=== PATIENT | male | born 1980 | race Two or more races ===

== ENCOUNTER 2024-06-19 22:21 | Inpatient (IN) | payer MEDICAID, OTHER ==
[~2024-06-19] VITALS: Ht 193 cm; Wt 89.8 kg
[2024-06-19 23:07] LABS: BASOPHILS # (AUTO) 0.1 K/uL (0.0-0.2); BASOPHILS % (AUTO) 0.4 % (0.0-2.0); EOSINOPHILS # (AUTO) 0.2 K/uL (0.0-0.7); EOSINOPHILS % (AUTO) 1.2 % (0.0-6.0); HEMATOCRIT 34 % (39-51); HEMOGLOBIN 11.4 g/dL (13.5-17.5); LYMPHOCYTES % (AUTO) 10.8 % (20.0-44.0); MEAN CORPUSCULAR HEMOGLOBIN 29 PG (26.0-33.0); MEAN CORPUSCULAR HGB CONC 33 g/dl (31.0-36.0); MEAN CORPUSCULAR VOLUME 89 fL (80-96); MONOCYTES # (AUTO) 0.8 K/uL (0.1-1.30); MONOCYTES % (AUTO) 4.5 % (2.0-12.0); NEUTROPHILS # (AUTO) 15.5 K/uL (1.8-8.9); NEUTROPHILS % (AUTO) 83.1 % (43.0-81.0); PLATELET COUNT (AUTO) 211 K/uL (150-450); RED BLOOD CELL COUNT(AUTO) 3.87 MIL/uL (4.5-6.0); RED CELL DISTRIBUTION WIDTH 13.4 % (11.5-15.0); WHITE BLOOD COUNT (AUTO) 18.6 K/uL (4.3-11.0)
[2024-06-19 23:15] LABS: CALCIUM, SERUM 9.1 mg/dL (8.5-10.1); CARBON DIOXIDE 30 mmol/L (21-32); CHLORIDE 105 mmol/L (98-107); GLUCOSE 115 mg/dL (74-106); POTASSIUM 3.7 mmol/L (3.5-5.1); SODIUM SERUM 141 mmol/L (136-145); UREA NITROGEN, BLOOD 19 mg/dL (7-18)
[2024-06-19] MEDS ORDERED: ACETAMINOPHEN ES 500 MG TABLET ONE (23:20)
[2024-06-19 23:21] LABS: ALANINE AMINOTRANSFERASE 32 U/L (12-78); ALBUMIN 3.3 g/dL (3.4-5.0); ALKALINE PHOSPHATASE 71 U/L (46-116); ASPARTATE AMINOTRANSFERASE 20 U/L (15-37); BILIRUBIN,DIRECT 0.2 mg/dL (0.0-0.2); BILIRUBIN,TOTAL 0.6 mg/dL (0.2-1.0); TOTAL PROTEIN, SERUM 8.1 g/dL (6.4-8.2)
[2024-06-19 23:26] LABS: LACTIC ACID 1.5 mmol/L (0.4-2.0)
[2024-06-19] MEDS: IV NS 0.9% 1,000 ML BAG IV ONE (23:30)
[2024-06-19 23:31] LABS: INR 1.08 (0.91-1.10); PARTIAL THROMBOPLASTIN TIME 31.5 SEC (24.3-34.3); PROTHROMBIN TIME 11.4 SECS (9.2-11.1)
[2024-06-19] MEDS: ACETAMINOPHEN ES 500 MG TABLET GT ONE (23:40)
[2024-06-20] VITALS (10 sets, daily range): BP systolic 92–109; BP diastolic 66–77; TEMP 97.5–98.1; O2SAT 94–100
[2024-06-20] MEDS ORDERED: PIPERACI/TAZO 3.375GM/D5W 50ML PB IV ONE ×2 (00:06→07:38)
[2024-06-20] MEDS: PIPERACILLIN /TAZOBACTAM 3.375 G in IV D5W 50 ML IV ONE (00:13)
[2024-06-20 01:20] LABS: APPEARANCE,URINE CLOUDY (CLEAR); BILIRUBIN,URINE NEGATIVE (NEGATIVE); BLOOD, URINE NEGATIVE Ery/uL (NEGATIVE); COLOR,URINE YELLOW (YELLOW); KETONES,URINE NEGATIVE (NEGATIVE); LEUKOCYTE ESTERASE ,URINE NEGATIVE (NEGATIVE); NITRITE, URINE NEGATIVE (NEGATIVE); PH,URINE 7.5 (5.0-8.0); PROTEIN,URINE NEGATIVE (NEGATIVE); UGLUCOSE NEGATIVE (NEGATIVE)
[2024-06-20] MEDS ORDERED: diphenhydrAMINE HCL 50 MG/ML VIAL ONE (01:28)
[2024-06-20] MEDS: diphenhydrAMINE HCL 50 MG/ML VIAL IV ONE (01:31)
[2024-06-20 01:55] LABS: ADD URINE CULTURE NO; RBC,URINE 0-2 /HPF (0-2); URINE AMORPHOUS URATE Moderate /HPF (None Seen)
[2024-06-20 01:56] LABS: BACTERIA,URINE 1+ /HPF (None Seen); WBC,URINE 0-2 /HPF (0-3)
[2024-06-20] MEDS ORDERED: ONDANSETRON HCL/PF 4 MG/2 ML VIAL IVP PRN (02:30)
[2024-06-20] MEDS ORDERED: Z GUARD REMEDY 4 OZ OINT TP PRN (02:30)
[2024-06-20] MEDS ORDERED: ACETAMINOPHEN 325 MG TABLET MC PRN (02:30)
[2024-06-20] MEDS ORDERED: PIPERACILLIN /TAZOBACTAM 3.375 G in IV D5W 50 ML IV SCH (05:00)
[2024-06-20 06:41] LABS: BASOPHILS % (AUTO) 0.2 % (0.0-2.0); EOSINOPHILS # (AUTO) 0.5 K/uL (0.0-0.7); EOSINOPHILS % (AUTO) 3.1 % (0.0-6.0); HEMATOCRIT 30 % (39-51); HEMOGLOBIN 10.2 g/dL (13.5-17.5); LYMPHOCYTES # (AUTO) 2.7 K/uL (0.8-4.8); LYMPHOCYTES % (AUTO) 16.8 % (20.0-44.0); MEAN CORPUSCULAR HEMOGLOBIN 30 PG (26.0-33.0); MEAN CORPUSCULAR HGB CONC 34 g/dl (31.0-36.0); MEAN CORPUSCULAR VOLUME 89 fL (80-96); MONOCYTES # (AUTO) 0.8 K/uL (0.1-1.30); MONOCYTES % (AUTO) 5.1 % (2.0-12.0); NEUTROPHILS # (AUTO) 12.3 K/uL (1.8-8.9); NEUTROPHILS % (AUTO) 74.8 % (43.0-81.0); PLATELET COUNT (AUTO) 183 K/uL (150-450); RED BLOOD CELL COUNT(AUTO) 3.41 MIL/uL (4.5-6.0); RED CELL DISTRIBUTION WIDTH 13.3 % (11.5-15.0); WHITE BLOOD COUNT (AUTO) 16.4 K/uL (4.3-11.0)
[2024-06-20 06:51] LABS: CALCIUM, SERUM 8.3 mg/dL (8.5-10.1); CREATININE 0.9 mg/dL (0.6-1.3); PHOSPHORUS 2.5 mg/dL (2.5-4.9)
[2024-06-20] MEDS: ZOSYN IVPB 3.375 G in IV D5W 50ml IV SCH (07:50)
[2024-06-20] MEDS ORDERED: QUET100T GT (07:52)
[2024-06-20] MEDS ORDERED: APIX2.5T GT (07:52)
[2024-06-20] MEDS ORDERED: IPRA3AMP22 IH ×2 (07:52)
[2024-06-20] MEDS ORDERED: CHOL100062 GT (07:52)
[2024-06-20] MEDS ORDERED: ACET-2030 GT (07:52)
[2024-06-20] MEDS ORDERED: LACT10SO58 GT (07:52)
[2024-06-20] MEDS ORDERED: ACET-868 GT (07:52)
[2024-06-20] MEDS ORDERED: LEVE100S GT (07:52)
[2024-06-20] MEDS ORDERED: TRAZ-257 GT (07:52)
[2024-06-20] MEDS ORDERED: BISA10SU11 RC (07:52)
[2024-06-20] MEDS ORDERED: VALP250S4 GT (07:52)
[2024-06-20] MEDS ORDERED: CHLO118L3 MM (07:52)
[2024-06-20] MEDS ORDERED: FENO48TA GT (07:52)
[2024-06-20] MEDS ORDERED: RISP2TAB5 GT (07:52)
[2024-06-20] MEDS ORDERED: NA P133E RC (07:52)
[2024-06-20] MEDS ORDERED: QUET200T GT (07:52)
[2024-06-20] MEDS ORDERED: GLYC2TAB21 GT (07:52)
[2024-06-20] MEDS ORDERED: BENZ1TAB7 GT (07:52)
[2024-06-20] MEDS ORDERED: OXYC5TAB3 GT (07:52)
[2024-06-20] MEDS ORDERED: L. A1TAB10 GT (07:52)
[2024-06-20] MEDS ORDERED: LACT100027 GT (07:52)
[2024-06-20] MEDS ORDERED: MULT-447 GT (07:52)
[2024-06-20] MEDS ORDERED: DICL100G26 TP (07:52)
[2024-06-20] MEDS ORDERED: ONDA-97 GT (07:52)
[2024-06-20] MEDS ORDERED: MIDO5TAB4 GT (07:52)
[2024-06-20] MEDS ORDERED: SCOP1PAT11 TD (07:52)
[2024-06-20] MEDS ORDERED: FAMO20TA8 GT (07:52)
[2024-06-20] MEDS: PANTOPRAZOLE 40 MG VIAL IV SCH (11:41)
[2024-06-20] MEDS ORDERED: LACTULOSE 10 G/15 ML UDC (PYXIS) GT PRN (13:00)
[2024-06-20] MEDS ORDERED: SCOPOLAMINE PATCH 1 MG/72HR TD SCH (13:00)
[2024-06-20] MEDS ORDERED: BISACODYL SUPP (10 MG) 10 MG/SUPP.RECT SUPP.RECT RC PRN (13:00)
[2024-06-20] MEDS ORDERED: oxyCODONE IR immediate release 5 MG TABLET GT PRN (13:30)
[2024-06-20] MEDS: VALPROIC ACID 250 MG/5 ML UDC GT SCH (13:49)
[2024-06-20] MEDS: VANCOMYCIN 750 MG in IV D5W 250 ML IV SCH (13:52)
[2024-06-20] MEDS: CEFEPIME 2 GM in IV D5W 100 ML IV SCH (13:52)
[2024-06-20] MEDS: SCOPOLAMINE PATCH 1 MG/72HR TD SCH (14:43)
[2024-06-20] MEDS: LEVETIRACETAM SOL (5 ML) 100 MG/ML UDC GT SCH (17:24)
[2024-06-20] MEDS: BENZTROPINE MESYLATE (1 MG) 1 MG TABLET GT SCH (17:24)
[2024-06-20] MEDS: APIXABAN 2.5 MG TABLET GT SCH (17:25)
[2024-06-20] MEDS: FAMOTIDINE (20 MG) 20 MG TABLET GT SCH (17:25)
[2024-06-20] MEDS: risperiDONE 1 MG TABLET GT SCH (17:25)
[2024-06-20] MEDS: MIDODRINE HCL (5MG) 5 MG TABLET GT SCH (17:29)
[2024-06-20] MEDS: TRAZODONE 50 MG TABLET GT SCH (21:19)
[2024-06-20] MEDS: QUETIAPINE FUMARATE 100 MG TABLET GT SCH (21:19)
[2024-06-20] MEDS: VANCOMYCIN HCL 1.25 GM in IV D5W 250 ML IV SCH (21:20)
[2024-06-20] MEDS: CHLORHEXIDINE GLUCONATE 4% 118 ML BOTTLE TP SCH (21:21)
[2024-06-20] MEDS: JEVITY 1.2 CAL 1,000 ML BOTTLE JT PRN (21:38)
[2024-06-21] VITALS (12 sets, daily range): BP systolic 104–118; BP diastolic 69–77; TEMP 97.5–98.5; O2SAT 94–99
[2024-06-21] MEDS: Fenofibrate 48 MG TABLET GT SCH (08:24)
[2024-06-21] MEDS: CHOLECALCIFEROL 1,000 UNIT TABLET (VIT D3) GT SCH (08:24)
[2024-06-21] MEDS: QUETIAPINE FUMARATE 100 MG TABLET GT SCH (08:25)
[2024-06-21] MEDS: ACIDOPHILUS/BULGARICUS 1 EACH TAB.CHEW GT SCH (08:25)
[2024-06-21] MEDS: MULTIVIT W/MINERALS 1 TAB TABLET GT SCH (08:25)
[2024-06-21] MEDS: PROSOURCE / PROSTAT (PYXIS) 30 ML UDC GT SCH (08:26)
[2024-06-21 08:45] LABS: CALCIUM, SERUM 9.1 mg/dL (8.5-10.1); CREATININE 0.9 mg/dL (0.6-1.3); POTASSIUM 3.8 mmol/L (3.5-5.1)
[2024-06-21 08:59] LABS: BASOPHILS % (AUTO) 0.4 % (0.0-2.0); EOSINOPHILS # (AUTO) 0.4 K/uL (0.0-0.7); EOSINOPHILS % (AUTO) 7.5 % (0.0-6.0); HEMATOCRIT 33 % (39-51); HEMOGLOBIN 11.2 g/dL (13.5-17.5); LYMPHOCYTES # (AUTO) 1.3 K/uL (0.8-4.8); MEAN CORPUSCULAR HEMOGLOBIN 30 PG (26.0-33.0); MEAN CORPUSCULAR HGB CONC 34 g/dl (31.0-36.0); MEAN CORPUSCULAR VOLUME 89 fL (80-96); MONOCYTES # (AUTO) 0.5 K/uL (0.1-1.30); MONOCYTES % (AUTO) 9.4 % (2.0-12.0); NEUTROPHILS # (AUTO) 3.4 K/uL (1.8-8.9); NEUTROPHILS % (AUTO) 59.7 % (43.0-81.0); PLATELET COUNT (AUTO) 204 K/uL (150-450); RED BLOOD CELL COUNT(AUTO) 3.73 MIL/uL (4.5-6.0); RED CELL DISTRIBUTION WIDTH 13.5 % (11.5-15.0); WHITE BLOOD COUNT (AUTO) 5.7 K/uL (4.3-11.0)
[2024-06-21 09:41] LABS: MAGNESIUM 2.1 mg/dL (1.8-2.4)
[2024-06-21] MEDS: VANCOMYCIN 1 GM in IV D5W 250ml IV SCH (22:48)
[2024-06-21 23:07] LABS: HIV-1 p24 ANTIGEN NON REACTIVE (NONREACTIVE); HIV-1/2 ANTIBODY NON REACTIVE (NONREACTIVE)
[2024-06-22] VITALS (13 sets, daily range): BP systolic 100–142; BP diastolic 66–78; TEMP 97.7–98.7; O2SAT 96–99
[2024-06-22 06:19] LABS: CREATININE 0.9 mg/dL (0.6-1.3); POTASSIUM 3.8 mmol/L (3.5-5.1)
[2024-06-22 06:37] LABS: BASOPHILS % (AUTO) 0.3 % (0.0-2.0); EOSINOPHILS # (AUTO) 0.4 K/uL (0.0-0.7); EOSINOPHILS % (AUTO) 8.1 % (0.0-6.0); HEMATOCRIT 33 % (39-51); HEMOGLOBIN 11.3 g/dL (13.5-17.5); LYMPHOCYTES # (AUTO) 1.7 K/uL (0.8-4.8); LYMPHOCYTES % (AUTO) 32.9 % (20.0-44.0); MEAN CORPUSCULAR HEMOGLOBIN 31 PG (26.0-33.0); MEAN CORPUSCULAR HGB CONC 34 g/dl (31.0-36.0); MEAN CORPUSCULAR VOLUME 90 fL (80-96); MONOCYTES # (AUTO) 0.4 K/uL (0.1-1.30); MONOCYTES % (AUTO) 8.3 % (2.0-12.0); NEUTROPHILS # (AUTO) 2.7 K/uL (1.8-8.9); NEUTROPHILS % (AUTO) 50.4 % (43.0-81.0); PLATELET COUNT (AUTO) 215 K/uL (150-450); RED BLOOD CELL COUNT(AUTO) 3.68 MIL/uL (4.5-6.0); RED CELL DISTRIBUTION WIDTH 13.4 % (11.5-15.0); WHITE BLOOD COUNT (AUTO) 5.3 K/uL (4.3-11.0)
[2024-06-23] VITALS (10 sets, daily range): BP systolic 97–111; BP diastolic 68–79; TEMP 97.3–98.1; O2SAT 96–100
[2024-06-23 06:47] LABS: CALCIUM, SERUM 9.2 mg/dL (8.5-10.1); CREATININE 0.9 mg/dL (0.6-1.3); POTASSIUM 3.7 mmol/L (3.5-5.1)
[2024-06-23] MEDS ORDERED: IVERMECTIN 3 MG TABLET PO ONE (14:00)
[2024-06-23] MEDS: IVERMECTIN 3 MG TABLET PO ONE (15:01)
[2024-06-23] MEDS: PERMETHRIN 5% CRM 60 GM TUBE TP ONE (15:06)
[2024-06-24] VITALS (7 sets, daily range): BP systolic 109–119; BP diastolic 73–83; TEMP 97.5–98.1; O2SAT 96–98
[2024-06-24 07:36] LABS: CALCIUM, SERUM 9.1 mg/dL (8.5-10.1); CREATININE 0.8 mg/dL (0.6-1.3); POTASSIUM 4.1 mmol/L (3.5-5.1)
[2024-06-24] MEDS ORDERED: VANC1PLA9 IV (10:26)
[2024-06-24] MEDS ORDERED: CEFE2FRO IV (10:26)
[2024-06-29] MEDS ORDERED: PERMETHRIN 5% CRM 60 GM TUBE TP ONE (14:00)
== END 2024-06-24 15:41 | DRG 720 ==
LOC: ER 22:59 → TELE1 06-20 06:48
PROVIDERS: ADMIT Nurse Practitioner Family; ATTEND Internal Medicine
DX: A41.9 Sepsis, unspecified organism (principal); J96.21 Acute and chronic respiratory failure with hypoxia; J15.69 Pneumonia due to other Gram-negative bacteria; E44.1 Mild protein-calorie malnutrition; R13.10 Dysphagia, unspecified; N39.0 Urinary tract infection, site not specified; D64.9 Anemia, unspecified; E88.09 Other disorders of plasma-protein metabolism, not elsewhere classified; F32.A Depression, unspecified; Z74.01 Bed confinement status; Z86.73 Personal history of transient ischemic attack (TIA), and cerebral infarction without residual deficits; Z93.0 Tracheostomy status; Z93.1 Gastrostomy status; F41.9 Anxiety disorder, unspecified; F20.9 Schizophrenia, unspecified; Z68.24 Body mass index [BMI] 24.0-24.9, adult; Z20.822 Contact with and (suspected) exposure to COVID-19; B96.89 Other specified bacterial agents as the cause of diseases classified elsewhere
CPT/HCPCS: 31720; 36415; 71045-TC; 80048-TC; 80076-TC; 80202-TC; 81001; 82607-TC; 82728-TC; 83540-TC; 83605-TC; 83735-TC; 84100-TC; 84484-TC; 85025-TC; 85730-TC; 86803; 87040-TC; 87081-TC; 87086-TC; 87340; 87806; 94640-TC; 94760-TC; 94761-TC; 94799-TC; A4223; A4623; A6403; G0378; J0692; J1200; J1953; J2470; J2543; J3370; J3371; J7030; J7050; J7060

== ENCOUNTER 2024-07-24 08:15 | Emergency (ER) | payer MEDICAID ==
[~2024-07-24] VITALS: Ht 193 cm; Wt 98.9 kg
[~2024-07-24 08:15] MED LIST: ACET-2030 GT; ACET-868 GT; APIX2.5T GT; BENZ1TAB7 GT; BISA10SU11 RC; CEFE2FRO IV; CHLO118L3 MM; CHOL100062 GT; DICL100G26 TP; FAMO20TA8 GT; FENO48TA GT; GLYC2TAB21 GT; IPRA3AMP22 IH; L. A1TAB10 GT; LACT100027 GT; LACT10SO58 GT; LEVE100S GT; MIDO5TAB4 GT; MULT-447 GT; NA P133E RC; ONDA-97 GT; OXYC5TAB3 GT; QUET100T GT; QUET200T GT; RISP2TAB5 GT; SCOP1PAT11 TD; TRAZ-257 GT; VALP250S4 GT; VANC1PLA9 IV
[2024-07-24 08:29] VITALS: TEMP 97.7
[2024-07-24 08:46] LABS: BASOPHILS % (AUTO) 0.2 % (0.0-2.0); EOSINOPHILS # (AUTO) 0.8 K/uL (0.0-0.7); EOSINOPHILS % (AUTO) 6.5 % (0.0-6.0); HEMATOCRIT 32 % (39-51); HEMOGLOBIN 10.7 g/dL (13.5-17.5); LYMPHOCYTES # (AUTO) 2.1 K/uL (0.8-4.8); LYMPHOCYTES % (AUTO) 17.4 % (20.0-44.0); MEAN CORPUSCULAR HEMOGLOBIN 30 PG (26.0-33.0); MEAN CORPUSCULAR HGB CONC 34 g/dl (31.0-36.0); MEAN CORPUSCULAR VOLUME 88 fL (80-96); MONOCYTES # (AUTO) 1.3 K/uL (0.1-1.30); MONOCYTES % (AUTO) 10.9 % (2.0-12.0); NEUTROPHILS # (AUTO) 7.7 K/uL (1.8-8.9); PLATELET COUNT (AUTO) 237 K/uL (150-450); RED BLOOD CELL COUNT(AUTO) 3.62 MIL/uL (4.5-6.0); RED CELL DISTRIBUTION WIDTH 13.3 % (11.5-15.0); WHITE BLOOD COUNT (AUTO) 11.9 K/uL (4.3-11.0)
[2024-07-24 08:55] LABS: CALCIUM, SERUM 8.9 mg/dL (8.5-10.1); CREATININE 1.1 mg/dL (0.6-1.3); POTASSIUM 4.1 mmol/L (3.5-5.1)
[2024-07-24 09:00] LABS: ALBUMIN 3.1 g/dL (3.4-5.0); BILIRUBIN,DIRECT 0.2 mg/dL (0.0-0.2); BILIRUBIN,TOTAL 0.4 mg/dL (0.2-1.0); TOTAL PROTEIN, SERUM 8.3 g/dL (6.4-8.2)
[2024-07-24 09:45] LABS: APPEARANCE,URINE SLIGHTLY CLOUDY (CLEAR); BILIRUBIN,URINE NEGATIVE (NEGATIVE); BLOOD, URINE 3+ Ery/uL (NEGATIVE); COLOR,URINE DARK YELLOW (YELLOW); KETONES,URINE NEGATIVE (NEGATIVE); LEUKOCYTE ESTERASE ,URINE 1+ (NEGATIVE); NITRITE, URINE NEGATIVE (NEGATIVE); PROTEIN,URINE TRACE mg/dl (NEGATIVE); UGLUCOSE NEGATIVE (NEGATIVE)
[2024-07-24 09:51] LABS: ADD URINE CULTURE YES; BACTERIA,URINE Rare /HPF (None Seen); RBC,URINE 81-100 /HPF (0-2); SQUAMOUS EPITHELIAL CELL,UR Rare /HPF (None Seen); WBC,URINE 0-2 /HPF (0-3)
[2024-07-24] MEDS ORDERED: KETOROLAC TROMETHAMINE 15 MG/ML VIAL ONE (10:01)
[2024-07-24] MEDS: KETOROLAC TROMETHAMINE 15 MG/ML VIAL IV ONE (10:26)
[2024-07-24] MEDS: LIDOCAINE 5% (PATCH) 1 EA PATCH TP STA (11:18)
[2024-07-24] MEDS ORDERED: POLY17PO4 PO (12:35)
[2024-07-24 13:06] VITALS: BP 108/73; O2SAT 99
== END 2024-07-24 13:11 ==
LOC: ER 08:27
DX: Z46.6 Encounter for fitting and adjustment of urinary device (principal); M54.50 Low back pain, unspecified; R31.9 Hematuria, unspecified; K59.00 Constipation, unspecified; F32.A Depression, unspecified; F41.9 Anxiety disorder, unspecified; Z79.01 Long term (current) use of anticoagulants; Z79.899 Other long term (current) drug therapy
CPT/HCPCS: 99285; 74176; 96374; 51702; 85025; 80048; 83690; 80076; 81001; 36415; J1885